=== PATIENT | female | born 1950 | race Caucasian/White ===

== ENCOUNTER 2018-05-09 15:06 | Inpatient (IN) | payer MEDICARE, OTHER ==
[~2018-05-09] VITALS: Ht 152.4 cm; Wt 84.3 kg
[2018-05-09] MEDS ORDERED: ASPI-496 PO (15:56)
[2018-05-09] MEDS ORDERED: METF850T10 PO (15:56)
[2018-05-09] MEDS ORDERED: NAPR-685 PO (15:56)
[2018-05-09] MEDS ORDERED: GLIP10TA13 PO (15:56)
[2018-05-09] MEDS ORDERED: CINN500C2 PO (15:56)
[2018-05-09] MEDS ORDERED: [UNRECOGNIZED DRUG - OTHER] (15:56)
[2018-05-09] MEDS ORDERED: LEVO500T8 PO (15:56)
[2018-05-09] MEDS ORDERED: LOVA10TA PO (15:56)
[2018-05-09] MEDS ORDERED: methylPREDNISolone SOD SUCC 125 MG/2 ML ONE (15:59)
[2018-05-09] MEDS ORDERED: methylPREDNISolone SOD SUCC 125 MG/2 ML IVP ONE (16:00)
[2018-05-09] MEDS ORDERED: ALBUTEROL/IPRATROPIUM 2.5MG/0.5MG, 3 ML NPPB ONE ×2 (16:00→18:00)
[2018-05-09] MEDS ORDERED: SODIUM CHLORIDE FLUSH 10ML SYR IVF ONE (16:00)
[2018-05-09] MEDS ORDERED: ALBU18HF INH (16:17)
[2018-05-09] MEDS ORDERED: ALBUTEROL/IPRATROPIUM 2.5MG/0.5MG, 3 ML ONE ×2 (16:19→17:40)
[2018-05-09 16:24] LABS: MEAN CORPUSCULAR HGB CONC 31.3 g/dL (32.4-35.8); MEAN CORPUSCULAR VOLUME 76.8 fL (80-100); MEAN PLATELET VOLUME 8.9 fL (7.4-10.4); PLATELET COUNT 411 x10^3/uL (130-400); RED BLOOD COUNT 4.61 x10^6/uL (3.82-5.3); RED CELL DISTRIBUTION WIDTH 15.5 % (9.6-15.2)
[2018-05-09 16:40] LABS: MD YES
[2018-05-09 16:48] LABS: ANION GAP 8 mmol/L (5-15); CALCIUM 8.3 mg/dL (8.5-10.1); CHLORIDE 97 mmol/L (98-107)
[2018-05-09 16:53] LABS: BAND#(MANUAL) 0.15 x10^3/uL; BANDS%(MANUAL) 1 % (0-7); BASOS% (MANUAL) 2 % (0-1); EOS% (MANUAL) 2 % (1-7); LYMPH#(MANUAL) 1.79 x10^3/uL (1-3.4); LYMPHS% (MANUAL) 12 % (22-44); METAMYELOCYTES# (MANUAL) 0.15 x10^3/uL (0-0); METAMYELOCYTES% (MANUAL) 1 % (0-1); MONOS#(MANUAL) 1.04 x10^3/uL (0.3-2.7); MONOS% (MANUAL) 7 % (2-9); MYELOCYTES# (MANUAL) 0.15 x10^3/uL (0-0); MYELOCYTES% (MANUAL) 1 % (0-0); NRBC % (MANUAL) 4 % (0-1); SEG#(MANUAL) 11.03 x10^3/uL (1.8-6.8); SEGS% (MANUAL) 74 % (42-75)
[2018-05-09 16:54] LABS: ALBUMIN 2.7 g/dL (3.4-5.0); ANISOCYTOSIS 1+; HYPOCHROMIA 1+; MICROCYTOSIS 1+; POLYCHROMASIA 1+
[2018-05-09 16:55] LABS: <PLATELET ESTIMATE> INCREASED; LARGE PLATELETS 1+; PMNS WITH VACUOLES 1+
[2018-05-09 17:03] LABS: TROPONIN I 0.263 ng/mL (0.000-0.045)
[2018-05-09] MEDS ORDERED: ASPIRIN 81 MG TABLET CHEW ONE (17:41)
[2018-05-09] MEDS ORDERED: ASPIRIN 81 MG TABLET CHEW PO ONE (18:00)
[2018-05-09] MEDS ORDERED: SODIUM CHLORIDE FLUSH 10ML SYR IVF PRN (18:30)
[2018-05-09] MEDS ORDERED: POLYETHYLENE GLYCOL 17 GM PACKET PO PRN (19:00)
[2018-05-09] MEDS ORDERED: ACETAMINOPHEN 325 MG TABLET PO PRN (19:00)
[2018-05-09] MEDS ORDERED: GUAIFENESIN/DM 200-20MG, 10ML UDC PO PRN (19:00)
[2018-05-09] MEDS ORDERED: BISACODYL 10 MG SUPP PR PRN (19:00)
[2018-05-09 19:41] LABS: HEMOGLOBIN A1C 8.9 % (4.2-6.3)
[2018-05-09] MEDS: ALBUTEROL/IPRATROPIUM 2.5MG/0.5MG, 3 ML NPPB SCH (20:00)
[2018-05-09] MEDS ORDERED: ALBUTEROL/IPRATROPIUM 2.5MG/0.5MG, 3 ML NPPB PRN (20:00)
[2018-05-09 20:04] LABS: MICROSCOPIC AUTO
[2018-05-09 20:06] LABS: CULTURE INDICATED? NO
[2018-05-09 20:25] VITALS: BP 180/79
[2018-05-09] MEDS: INSULIN LISPRO 100 UNITS/ML, PEN SQ-INSULIN SCH (21:00)
[2018-05-09] MEDS: SODIUM CHLORIDE FLUSH 10ML SYR IVF SCH (21:00)
[2018-05-09] MEDS ORDERED: CINNAMON BARK 1000 MG PO SCH (21:00)
[2018-05-09 21:30] VITALS: BP 152/79
[2018-05-09] MEDS: LOVASTATIN 10 MG TABLET PO SCH (21:53)
[2018-05-09] MEDS: ONDANSETRON ODT 4 MG PO PRN (21:53)
[2018-05-09] MEDS: CEFTRIAXONE PMX 1GM/50ML 50 ML IV SCH (21:55)
[2018-05-09] MEDS: AZITHROMYCIN 500 MG in SODIUM CHLORIDE 0.9% 250 ML IV SCH (21:55)
[2018-05-09] MEDS: HEPARIN 5,000 UNITS/ML, 1ML SQ SCH (21:55)
[2018-05-09] MEDS: methylPREDNISolone SOD SUCC 125 MG/2 ML IVPush SCH (21:55)
[2018-05-09] MEDS ORDERED: INSULIN LISPRO 100 UNITS/ML, PEN SQ-INSULIN ONE (22:00)
[2018-05-09 22:32] LABS: TROPONIN I 0.191 ng/mL (0.000-0.045)
[2018-05-10 01:07] VITALS: BP 144/78
[2018-05-10] MEDS: methylPREDNISolone SOD SUCC 125 MG/2 ML IVPush SCH ×2 (04:16→12:06)
[2018-05-10 04:53] LABS: BASOPHILS % (AUTO) 0 % (0-1); EOSINOPHILS # (AUTO) 0.01 x10^3/uL (0-0.4); EOSINOPHILS % (AUTO) 0 % (1-7); LYMPHOCYTES # (AUTO) 0.84 x10^3/uL (1-3.4); LYMPHOCYTES % (AUTO) 5 % (22-44); MD NO; MEAN CORPUSCULAR HEMOGLOBIN 24.4 pg (27.0-34.8); MEAN CORPUSCULAR HGB CONC 31.7 g/dL (32.4-35.8); MEAN CORPUSCULAR VOLUME 76.9 fL (80-100); MEAN PLATELET VOLUME 9.2 fL (7.4-10.4); MONOCYTES # (AUTO) 0.23 x10^3/uL (0.2-0.8); MONOCYTES % (AUTO) 2 % (2-9); NEUTROPHILS % (AUTO) 93 % (42-75); PLATELET COUNT 359 x10^3/uL (130-400); RED BLOOD COUNT 4.43 x10^6/uL (3.82-5.3); RED CELL DISTRIBUTION WIDTH 15.5 % (9.6-15.2)
[2018-05-10 05:00] LABS: ALBUMIN 2.4 g/dL (3.4-5.0); ANION GAP 7 mmol/L (5-15); CALCIUM 7.3 mg/dL (8.5-10.1); CHLORIDE 96 mmol/L (98-107)
[2018-05-10 05:07] LABS: CREATININE 1.54 mg/dL (0.55-1.02)
[2018-05-10 05:08] LABS: ALANINE AMINOTRANSFERASE 13 U/L (12-78); ALKALINE PHOSPHATASE 93 U/L (45-117); BILIRUBIN,TOTAL 0.3 mg/dL (0.2-1.0); TOTAL PROTEIN 6.6 g/dL (6.4-8.2); TROPONIN I 0.125 ng/mL (0.000-0.045)
[2018-05-10] MEDS: HEPARIN 5,000 UNITS/ML, 1ML SQ SCH ×3 (05:18→22:45)
[2018-05-10] MEDS: ALBUTEROL/IPRATROPIUM 2.5MG/0.5MG, 3 ML NPPB SCH ×4 (06:45→20:00)
[2018-05-10 07:43] VITALS: BP 126/63
[2018-05-10] MEDS ORDERED: FUROSEMIDE 40 MG/4 ML IV ONE (08:00)
[2018-05-10] MEDS ORDERED: hydrALAzine 20 MG/ML, 1ML IV PRN (08:00)
[2018-05-10] MEDS: INSULIN LISPRO 100 UNITS/ML, PEN SQ-INSULIN SCH ×4 (08:32→22:45)
[2018-05-10] MEDS: SENNA/DOCUSATE TABLET PO SCH (08:32)
[2018-05-10] MEDS: ASPIRIN 81 MG TABLET EC PO SCH (08:32)
[2018-05-10] MEDS: SODIUM CHLORIDE FLUSH 10ML SYR IVF SCH ×2 (08:33→21:23)
[2018-05-10] MEDS ORDERED: HYDROCHLOROTHIAZIDE 25 MG TABLET PO SCH (09:00)
[2018-05-10] MEDS: FLUTICASONE/VILANTEROL 100-25MCG/INH INH SCH (09:37)
[2018-05-10] MEDS: INSULIN GLARGINE 100 UNITS/ML, PEN SQ-INSULIN SCH ×2 (09:38→22:45)
[2018-05-10 13:06] VITALS: BP 118/50
[2018-05-10] MEDS ORDERED: INSULIN LISPRO 100 UNITS/ML, PEN SQ-INSULIN SCH (14:00)
[2018-05-10 14:16] LABS: ANION GAP 8 mmol/L (5-15); CALCIUM 7.4 mg/dL (8.5-10.1); CHLORIDE 93 mmol/L (98-107)
[2018-05-10 14:17] LABS: CREATININE 1.68 mg/dL (0.55-1.02)
[2018-05-10] MEDS ORDERED: INSULIN LISPRO 100 UNITS/ML, PEN SQ-INSULIN ONE (17:30)
[2018-05-10 17:46] LABS: RAPID INFLUENZA A Negative (Negative); RAPID INFLUENZA B Negative (Negative)
[2018-05-10 19:36] VITALS: BP 115/66
[2018-05-10] MEDS: AZITHROMYCIN 500 MG in SODIUM CHLORIDE 0.9% 250 ML IV SCH (21:22)
[2018-05-10] MEDS: LOVASTATIN 10 MG TABLET PO SCH (21:23)
[2018-05-10] MEDS: CEFTRIAXONE PMX 1GM/50ML 50 ML IV SCH (22:43)
[2018-05-10] MEDS: ONDANSETRON ODT 4 MG PO PRN (22:45)
[2018-05-11 01:33] VITALS: BP 114/64
[2018-05-11] MEDS: HEPARIN 5,000 UNITS/ML, 1ML SQ SCH ×3 (04:50→22:36)
[2018-05-11 06:05] LABS: BASOPHILS # (AUTO) 0.01 x10^3/uL (0-0.1); BASOPHILS % (AUTO) 0 % (0-1); EOSINOPHILS % (AUTO) 0 % (1-7); LYMPHOCYTES # (AUTO) 0.85 x10^3/uL (1-3.4); LYMPHOCYTES % (AUTO) 5 % (22-44); MD NO; MEAN CORPUSCULAR HEMOGLOBIN 24.6 pg (27.0-34.8); MEAN CORPUSCULAR HGB CONC 31.9 g/dL (32.4-35.8); MEAN CORPUSCULAR VOLUME 77.1 fL (80-100); MEAN PLATELET VOLUME 9.1 fL (7.4-10.4); MONOCYTES # (AUTO) 1.25 x10^3/uL (0.2-0.8); MONOCYTES % (AUTO) 8 % (2-9); NEUTROPHILS # (AUTO) 14.33 x10^3/uL (1.8-6.8); NEUTROPHILS % (AUTO) 87 % (42-75); PLATELET COUNT 330 x10^3/uL (130-400); RED CELL DISTRIBUTION WIDTH 15.7 % (9.6-15.2)
[2018-05-11 06:06] LABS: ALANINE AMINOTRANSFERASE 13 U/L (12-78); ALBUMIN 2.5 g/dL (3.4-5.0); ANION GAP 8 mmol/L (5-15); CALCIUM 7.6 mg/dL (8.5-10.1); CHLORIDE 95 mmol/L (98-107); CREATININE 1.72 mg/dL (0.55-1.02)
[2018-05-11 06:09] LABS: ALKALINE PHOSPHATASE 93 U/L (45-117); BILIRUBIN,TOTAL 0.2 mg/dL (0.2-1.0); TOTAL PROTEIN 6.3 g/dL (6.4-8.2)
[2018-05-11] MEDS: ALBUTEROL/IPRATROPIUM 2.5MG/0.5MG, 3 ML NPPB SCH ×4 (07:00→20:00)
[2018-05-11] MEDS: INSULIN LISPRO 100 UNITS/ML, PEN SQ-INSULIN SCH ×4 (07:38→21:27)
[2018-05-11 07:51] VITALS: BP 123/67
[2018-05-11] MEDS: SENNA/DOCUSATE TABLET PO SCH (09:24)
[2018-05-11] MEDS: GUAIFENESIN ER 600 MG TABLET PO SCH ×2 (09:24→21:27)
[2018-05-11] MEDS: ASPIRIN 81 MG TABLET EC PO SCH (09:24)
[2018-05-11] MEDS: INSULIN GLARGINE 100 UNITS/ML, PEN SQ-INSULIN SCH ×2 (09:27→21:28)
[2018-05-11] MEDS: FLUTICASONE/VILANTEROL 100-25MCG/INH INH SCH (09:29)
[2018-05-11] MEDS: FERROUS SULFATE 325 MG TABLET PO SCH ×3 (12:00→17:31)
[2018-05-11] MEDS: SODIUM CHLORIDE FLUSH 10ML SYR IVF SCH ×2 (12:35→21:27)
[2018-05-11 13:06] VITALS: BP 121/65
[2018-05-11 14:11] LABS: POTASSIUM,URINE RANDOM 3 mmol/L; PROTEIN/CREATININE RATIO,URINE 1818 (0-200); SODIUM,URINE RANDOM 10 mmol/L; TOTAL PROTEIN,URINE RANDOM 34 mg/dL (0-12)
[2018-05-11 14:12] LABS: CHLORIDE,URINE RANDOM < 10 mmol/L
[2018-05-11 19:08] VITALS: BP 130/64
[2018-05-11] MEDS: AZITHROMYCIN 500 MG in SODIUM CHLORIDE 0.9% 250 ML IV SCH (21:26)
[2018-05-11] MEDS: LOVASTATIN 10 MG TABLET PO SCH (21:27)
[2018-05-11] MEDS: CEFTRIAXONE PMX 1GM/50ML 50 ML IV SCH (22:36)
[2018-05-12 02:03] VITALS: BP 144/67
[2018-05-12 05:57] LABS: MEAN CORPUSCULAR HEMOGLOBIN 24.3 pg (27.0-34.8); MEAN CORPUSCULAR HGB CONC 31.8 g/dL (32.4-35.8); MEAN CORPUSCULAR VOLUME 76.6 fL (80-100); MEAN PLATELET VOLUME 9.5 fL (7.4-10.4); PLATELET COUNT 407 x10^3/uL (130-400); RED BLOOD COUNT 4.42 x10^6/uL (3.82-5.3); RED CELL DISTRIBUTION WIDTH 15.6 % (9.6-15.2)
[2018-05-12 06:04] LABS: ANION GAP 8 mmol/L (5-15); CHLORIDE 101 mmol/L (98-107); CREATININE 1.33 mg/dL (0.55-1.02)
[2018-05-12 06:41] LABS: BASOPHILS # (AUTO) 0.15 x10^3/uL (0-0.1); BASOPHILS % (AUTO) 1 % (0-1); EOSINOPHILS # (AUTO) 0.01 x10^3/uL (0-0.4); EOSINOPHILS % (AUTO) 0 % (1-7); LYMPHOCYTES % (AUTO) 9 % (22-44); MD SCAN; MONOCYTES % (AUTO) 7 % (2-9); NEUTROPHILS # (AUTO) 19.78 x10^3/uL (1.8-6.8); NEUTROPHILS % (AUTO) 84 % (42-75)
[2018-05-12] MEDS: ALBUTEROL/IPRATROPIUM 2.5MG/0.5MG, 3 ML NPPB SCH ×4 (07:00→22:46)
[2018-05-12] MEDS: INSULIN LISPRO 100 UNITS/ML, PEN SQ-INSULIN SCH ×4 (07:00→22:29)
[2018-05-12 07:34] VITALS: BP 135/76
[2018-05-12] MEDS: HEPARIN 5,000 UNITS/ML, 1ML SQ SCH ×3 (08:12→22:14)
[2018-05-12] MEDS: ASPIRIN 81 MG TABLET EC PO SCH (08:12)
[2018-05-12] MEDS: SENNA/DOCUSATE TABLET PO SCH (08:12)
[2018-05-12] MEDS: FERROUS SULFATE 325 MG TABLET PO SCH ×3 (08:12→16:05)
[2018-05-12] MEDS: GUAIFENESIN ER 600 MG TABLET PO SCH ×2 (08:12→22:13)
[2018-05-12] MEDS: SODIUM CHLORIDE FLUSH 10ML SYR IVF SCH ×2 (08:13→20:19)
[2018-05-12] MEDS: FLUTICASONE/VILANTEROL 100-25MCG/INH INH SCH (08:13)
[2018-05-12] MEDS: INSULIN GLARGINE 100 UNITS/ML, PEN SQ-INSULIN SCH ×2 (11:51→22:28)
[2018-05-12 12:54] VITALS: BP 142/63
[2018-05-12 19:01] VITALS: BP 139/57
[2018-05-12] MEDS: AZITHROMYCIN 500 MG in SODIUM CHLORIDE 0.9% 250 ML IV SCH (20:07)
[2018-05-12] MEDS: CEFTRIAXONE PMX 1GM/50ML 50 ML IV SCH (22:12)
[2018-05-12] MEDS: LOVASTATIN 10 MG TABLET PO SCH (22:14)
[2018-05-13 00:02] VITALS: BP 178/78
[2018-05-13 05:09] LABS: BASOPHILS % (AUTO) 0 % (0-1); EOSINOPHILS % (AUTO) 0 % (1-7); LYMPHOCYTES # (AUTO) 0.67 x10^3/uL (1-3.4); LYMPHOCYTES % (AUTO) 5 % (22-44); MD NO; MEAN CORPUSCULAR HEMOGLOBIN 24.1 pg (27.0-34.8); MEAN CORPUSCULAR HGB CONC 31.5 g/dL (32.4-35.8); MEAN CORPUSCULAR VOLUME 76.4 fL (80-100); MONOCYTES # (AUTO) 0.57 x10^3/uL (0.2-0.8); MONOCYTES % (AUTO) 4 % (2-9); NEUTROPHILS # (AUTO) 12.01 x10^3/uL (1.8-6.8); NEUTROPHILS % (AUTO) 91 % (42-75); PLATELET COUNT 261 x10^3/uL (130-400); RED BLOOD COUNT 4.44 x10^6/uL (3.82-5.3); RED CELL DISTRIBUTION WIDTH 15.9 % (9.6-15.2)
[2018-05-13 05:20] LABS: ANION GAP 4 mmol/L (5-15); CALCIUM 7.8 mg/dL (8.5-10.1); CHLORIDE 106 mmol/L (98-107); CREATININE 0.99 mg/dL (0.55-1.02)
[2018-05-13] MEDS: INSULIN LISPRO 100 UNITS/ML, PEN SQ-INSULIN SCH ×3 (07:00→15:53)
[2018-05-13 07:20] VITALS: BP 186/82
[2018-05-13 07:27] VITALS: BP 169/81
[2018-05-13] MEDS: ALBUTEROL/IPRATROPIUM 2.5MG/0.5MG, 3 ML NPPB SCH ×3 (07:40→14:55)
[2018-05-13] MEDS: GUAIFENESIN ER 600 MG TABLET PO SCH (08:07)
[2018-05-13] MEDS: ASPIRIN 81 MG TABLET EC PO SCH (08:07)
[2018-05-13] MEDS: HEPARIN 5,000 UNITS/ML, 1ML SQ SCH ×2 (08:07→15:53)
[2018-05-13] MEDS: FERROUS SULFATE 325 MG TABLET PO SCH ×3 (08:07→15:53)
[2018-05-13] MEDS: SENNA/DOCUSATE TABLET PO SCH (08:07)
[2018-05-13] MEDS: FLUTICASONE/VILANTEROL 100-25MCG/INH INH SCH (08:08)
[2018-05-13] MEDS: INSULIN GLARGINE 100 UNITS/ML, PEN SQ-INSULIN SCH (08:08)
[2018-05-13] MEDS: SODIUM CHLORIDE FLUSH 10ML SYR IVF SCH (08:09)
[2018-05-13 13:23] VITALS: BP 175/93
[2018-05-13] MEDS ORDERED: PRED5TAB PO (14:01)
[2018-05-13] MEDS ORDERED: FERR-51 PO (14:01)
[2018-05-13] MEDS ORDERED: CEFD300C37 PO (14:01)
== END 2018-05-13 18:38 | disposition home or self-care (01) | DRG 189 ==
LOC: ED 16:36 → EDIP 18:15 → 5SO 19:23 → 3NW 05-12 19:55
PROVIDERS: ADMIT Internal Medicine; ATTEND Family Medicine
DX: J96.21 Acute and chronic respiratory failure with hypoxia (principal); N17.0 Acute kidney failure with tubular necrosis; J44.1 Chronic obstructive pulmonary disease with (acute) exacerbation; E44.0 Moderate protein-calorie malnutrition; I24.8 Other forms of acute ischemic heart disease; I50.32 Chronic diastolic (congestive) heart failure; Z88.6 Allergy status to analgesic agent; Z88.0 Allergy status to penicillin; Z88.2 Allergy status to sulfonamides; D50.9 Iron deficiency anemia, unspecified; D72.829 Elevated white blood cell count, unspecified; E11.9 Type 2 diabetes mellitus without complications; E78.5 Hyperlipidemia, unspecified; T38.0X5A Adverse effect of glucocorticoids and synthetic analogues, initial encounter; Y92.89 Other specified places as the place of occurrence of the external cause; Z87.891 Personal history of nicotine dependence; Z82.49 Family history of ischemic heart disease and other diseases of the circulatory system; Z77.22 Contact with and (suspected) exposure to environmental tobacco smoke (acute) (chronic); Z68.36 Body mass index [BMI] 36.0-36.9, adult; Z98.49 Cataract extraction status, unspecified eye; Z90.49 Acquired absence of other specified parts of digestive tract
CPT/HCPCS: 36415; 71045; 80048; 80053; 81001; 82040; 82436; 82570; 82728; 82947; 82962; 83036; 83540; 83550; 83880; 84133; 84145; 84156; 84300; 84484; 85025; 87070; 87205; 87400; 90656; 93005; 93306; 94640; 96374; 99285; G0378; J0456; J0696; J1644; J1940; J7620; Q0162; J1815; J2930; J7050; J7512

== ENCOUNTER 2020-09-12 16:43 | Emergency (ER) | payer MEDICARE ==
[~2020-09-12] VITALS: Ht 152.4 cm; Wt 90.1 kg
[~2020-09-12 16:43] MED LIST: ALBU18HF INH; ASPI-496 PO; CEFD300C37 PO; CINN500C2 PO; FERR-51 PO; GLIP10TA13 PO; LEVO500T8 PO; LOVA10TA PO; METF850T10 PO; NAPR-685 PO; PRED5TAB PO; [UNRECOGNIZED DRUG - OTHER]
--- NOTE | 2020-09-12 17:10 | NUR ---
BREAK RN: PT BROUGHT BACK TO ROOM FROM TRIAGE. PT WAS AT OPTHALMOLOGIST'S OFFICE AND WAS GOING TO HAVE PROCEDURE DONE BUT BLOOD SUGAR WAS 580. SENT PT TO ER FOR ASSESSMENT. BLOOD SUGAR IN TRIAGE 381. PT STATED THAT SHE DID NOT TAKE ANY EXTRA INSULIN OR MEDICATIONS TO BRING BS DOWN. PT DENIES ANY SYMPTOMS OR COMPLAINTS.
[2020-09-12] MEDS ORDERED: INSU100I13 SQ (17:23)
[2020-09-12] MEDS ORDERED: GABA-826 PO (17:23)
--- NOTE | 2020-09-12 17:27 | NUR ---
PT REPORT FROM MIYA MILLER RN. PT CARE TO BE ASSUMED.
--- NOTE | 2020-09-12 17:28 | NUR ---
DR ROSARIO AT
[2020-09-12] MEDS ORDERED: SODIUM CHLORIDE 0.9% 1,000ML IVBOLUS ONE (17:30)
--- NOTE | 2020-09-12 17:53 | NUR ---
IV ATTEMPTED X3. WILL SEEK ASSISTANCE
[2020-09-12] MEDS ORDERED: INSULIN REGULAR 100 UNITS/ML, 3ML VIAL IVPush ONE (18:00)
[2020-09-12 18:15] LABS: PH, VENOUS 7.331 pH (7.320-7.420)
[2020-09-12] MEDS ORDERED: INSULIN SINGLE DOSE, ER ONE (18:17)
--- NOTE | 2020-09-12 18:20 | NUR ---
INSULIN GIVEN PER EMAR. IV SITE PATENT. PT AMBULATORY TO [facility] W/ STEADY GAIT.
[2020-09-12 18:21] LABS: BASOPHILS % (AUTO) 1 % (0-1); EOSINOPHILS % (AUTO) 2 % (1-7); LYMPHOCYTES % (AUTO) 24 % (22-44); MEAN CORPUSCULAR HEMOGLOBIN 26.3 pg (27.0-34.8); MEAN CORPUSCULAR HGB CONC 33.1 g/dL (32.4-35.8); MEAN PLATELET VOLUME 8.7 fL (7.4-10.4); MONOCYTES % (AUTO) 7 % (2-9); NEUTROPHILS % (AUTO) 67 % (42-75); PLATELET COUNT 260 x10^3/uL (130-400); RED BLOOD COUNT 4.23 x10^6/uL (3.82-5.3); RED CELL DISTRIBUTION WIDTH 14.4 % (9.6-15.2)
[2020-09-12 18:24] LABS: MD NO
--- NOTE | 2020-09-12 18:24 | NUR ---
PT RETURNED TO [facility] W/OUT INCIDENT. VOIDED SPECIMEN PROVIDED.
[2020-09-12 18:30] LABS: ALBUMIN 3.3 g/dL (3.4-5.0); ANION GAP 4 mmol/L (5-15); CALCIUM 9.1 mg/dL (8.5-10.1); CHLORIDE 104 mmol/L (98-107)
[2020-09-12 18:35] LABS: ALANINE AMINOTRANSFERASE 14 U/L (12-78); ALKALINE PHOSPHATASE 133 U/L (45-117); BILIRUBIN,TOTAL 0.3 mg/dL (0.2-1.0); CREATININE 1.63 mg/dL (0.55-1.02); TOTAL PROTEIN 7.2 g/dL (6.4-8.2); TROPONIN I < 0.015 ng/mL (0.000-0.045)
[2020-09-12 18:37] LABS: MICROSCOPIC AUTO
[2020-09-12 18:51] LABS: ACETONE, SERUM Negative (Negative)
[2020-09-12] MEDS ORDERED: FURO20TA3 PO (19:10)
[2020-09-12] MEDS ORDERED: ENAL5TAB10 PO (19:10)
[2020-09-12] MEDS ORDERED: OXYB-39 PO (19:10)
[2020-09-12] MEDS ORDERED: METF10007 PO (19:10)
[2020-09-12 19:52] VITALS: BP 169/48
== END 2020-09-12 19:56 | disposition home or self-care (01) ==
LOC: ED 18:41
DX: E11.65 Type 2 diabetes mellitus with hyperglycemia (principal); I11.0 Hypertensive heart disease with heart failure; I50.9 Heart failure, unspecified; I25.2 Old myocardial infarction; I44.4 Left anterior fascicular block; Z87.891 Personal history of nicotine dependence
CPT/HCPCS: 36415; 80053; 81001; 82010; 82803; 82962; 83036; 84484; 85025; 93005; 96374; 99284; J1815